=== PATIENT | male | born 1955 | race Caucasian/White ===

== ENCOUNTER 2018-11-28 07:22 | Inpatient (IN) | payer BC ==
[~2018-11-28 07:22] MED LIST: Famotidine 20 MG/2 ML SDV IVPUSH SCH; Ropivacaine 49.25 ML, Ketorolac 30 MG, EPINEPHrine 0.5 MG, cloNIDine 80 MCG in Sodium C... INJECT SCH; Scopolamine 1.5 MG Transdermal Patch TRDERM SCH; Tranexamic Acid 2,000 MG in Sodium Chloride 0.9% 100 ML IV ONE
[2018-11-28] MEDS: Acetaminophen 1,000 MG in Premix Bag 1 BAG IV SCH ×4 (08:03→21:04)
[2018-11-28] MEDS ORDERED: Propofol 200 MG/20 ML SDV ONE ×2 (08:22→10:47)
[2018-11-28] MEDS ORDERED: fentaNYL 100 MCG/2 ML SDV ONE (08:22)
[2018-11-28] MEDS ORDERED: Midazolam 1 MG/ML 2 ML SDV ONE (08:23)
[2018-11-28] MEDS: Lactated Ringers 1,000 ML IV SCH ×2 (08:32→21:04)
--- NOTE | 2018-11-28 08:44 | PCM.PREANE ---
Preanesthetic Assessment - Anesthesia/Transfusion/Family Hx Anesthesia History: Prior Anesthesia Without Reaction Family History of Anesthesia Reaction: No Transfusion History: No Prior Transfusion(s) Intubation History: Unknown - Review of Systems General: No Symptoms Pulmonary: No Symptoms Cardiovascular: No Symptoms Gastrointestinal: No Symptoms Neurological: No Symptoms Other: Reports: None - Physical Assessment Height: 6 ft 1 in Weight: 146.964 kg ASA Class: 3 Mental Status: Alert & Oriented x3 Airway Class: Mallampati = 2 Dentition: Reports: Normal Dentition Thyro-Mental Finger Breadths: 3 Mouth Opening Finger Breadths: 3 ROM/Head Extension: Full Lungs: Clear to Auscultation, Normal Respiratory Effort Cardiovascular: Regular Rate, Regular Rhythm - Allergies Allergies/Adverse Reactions: Allergies Allergy/AdvReac Type Severity Reaction Status Date / Time codeine Allergy Nausea and Verified 11/24/18 07:24 Vomiting - Blood Blood Available: No - Anesthesia Plan Pre-Op Medication Ordered: None - Acknowledgements Anesthesia Type Planned: Spinal (general anesthesia back-up plan) Pt an Appropriate Candidate for the Planned Anesthesia: Yes Alternatives and Risks of Anesthesia Discussed w Pt/Guardian: Yes Pt/Guardian Understands and Agrees with Anesthesia Plan: Yes PreAnesthesia Questionnaire HEENT History: Reports: Retinal Detachment, Other (See Below) Other HEENT History: wears glasses Cardiovascular History: Reports: Blood Clots/VTE/DVT, Hypertension Other Cardiovascular History: hx blood clot to rt leg following femur reconstruction in 2010 Respiratory History: Reports: Sleep Apnea Other Respiratory History: uses CPAP Gastrointestinal History: Reports: GERD Genitourinary History: Reports: None Musculoskeletal History: Reports: Fracture Other Musculoskeletal History: hx fx rt femur Neurological History: Reports: Migraines Other Neuro History: migraines in the past, restless leg syndrome Psychiatric History: Reports: Anxiety, Depression Endocrine/Metabolic History: Reports: Obesity/BMI 30+ (BMI 42.7) Hematologic History: Reports: None Immunologic History: Reports: Other (See Below) Other Immunologic History: surgical request states MRSA positive, patient denies MRSA hx Oncologic (Cancer) History: Reports: None Dermatologic History: Reports: None - Past Surgical History Head Surgeries/Procedures: Reports: None HEENT Surgical History: Reports: Cataract Surgery, Eye Surgery, Tonsillectomy Other HEENT Surgeries/Procedures: surgery for retinal detachment Cardiovascular Surgical History: Reports: None Respiratory Surgical History: Reports: None GI Surgical History: Reports: Colonoscopy Male Surgical History: Reports: None Endocrine Surgical History: Reports: None Neurological Surgical History: Reports: None Musculoskeletal Surgical History: Reports: ORIF, Other (See Below) Other Musculoskeletal Surgeries/Procedures:: excision of ganglion cyst-rt wrist , rt femur reconstruction Dermatological Surgical History: Reports: None - SUBSTANCE USE Smoking Status *Q: Never Smoker Recreational Drug Use History: No - HOME MEDS Home Medications: Home Meds Aspirin [[place] Aspirin EC] 81 mg PO DAILY 08/22/14 [History] Omeprazole [Prilosec] 20 mg PO DAILY 08/22/14 [History] Pramipexole Di-HCl [Pramipexole Dihydrochloride] 1 mg PO BEDTIME 08/22/14 [ History] SUMAtriptan Succinate [Imitrex] 100 mg PO ASDIRECTED PRN 08/22/14 [History] Citalopram Hydrobromide [Celexa] 40 mg PO DAILY 11/24/18 [History] Losartan [Cozaar] 50 mg PO DAILY 11/24/18 [History] amLODIPine [Norvasc] 5 mg PO DAILY 11/24/18 [History] hydroCHLOROthiazide [Hydrochlorothiazide] 25 mg PO DAILY 11/24/18 [History] - CURRENT (IN HOUSE) MEDS Current Meds: Current Medications Famotidine (Pepcid) 40 mg IVPUSH ONARRIVE [facility] Last Admin: 11/28/18 08:04 Dose: 40 mg Acetaminophen 1,000 mg/ Premix 100 mls @ 400 mls/hr IV ONARRIVE [facility] Last Admin: 11/28/18 08:03 Dose: 400 mls/hr Ropivacaine 49.25 ml/Ketorolac Tromethamine 30 mg/Epinephrine HCl 0.5 mg/ Clonidine HCl 80 mcg/ Sodium Chloride 75 mls @ 50 mls/sec INJECT ASDIRECTED [facility] Lactated Ringer's (Ringers, Lactated) 1,000 mls @ 100 mls/hr IV ASDIRECTED KEILY Last Admin: 11/28/18 08:32 Dose: 100 mls/hr Vancomycin HCl 1 gm/ Sodium (Chloride) 250 mls @ 166.512 mls/hr IV ONCALL KE[facility] Scopolamine (Transderm-Scop) 1.5 mg TRDERM ONARRIVE [facility] Last Admin: 11/28/18 08:03 Dose: 1.5 mg Discontinued Medications Fentanyl (Sublimaze) Confirm Administered Dose 100 mcg .ROUTE .STK-MED ONE Stop: 11/28/18 08:23 Tranexamic Acid 2,000 mg/ (Sodium Chloride) 120 mls @ 600 mls/hr IV ASDIRECTED ONE Stop: 11/28/18 06:11 Midazolam HCl (Versed 1 Mg/Ml) Confirm Administered Dose 4 mg .ROUTE .STK-MED ONE Stop: 11/28/18 08:24 Propofol (Diprivan 20 Ml) Confirm Administered Dose 400 mg .ROUTE .STK-MED ONE Stop: 11/28/18 08:23 Tranexamic Acid (Cyklokapron) Confirm Administered Dose 2,000 mg .ROUTE .STK- MED ONE Stop: 11/28/18 08:20
[2018-11-28] MEDS ORDERED: Ondansetron 4 MG/2 ML SDV IVPUSH PRN (11:15)
[2018-11-28] MEDS ORDERED: Aluminum Hydroxide/Magnesium Hydroxide/Simethicone Susp 30 ML Cup PO PRN (11:15)
[2018-11-28] MEDS ORDERED: Bisacodyl 10 MG Supp RECTAL PRN (11:15)
[2018-11-28] MEDS ORDERED: diphenhydrAMINE 25 MG Cap PO PRN (11:15)
[2018-11-28] MEDS: Ketorolac 15 MG/ML SDV IVPUSH SCH ×4 (11:15→22:38)
[2018-11-28] MEDS ORDERED: Morphine PF 30 MG/30 ML PCA Vial IV PRN (11:15)
[2018-11-28] MEDS ORDERED: Sodium Chloride 0.9% 2.5 ML Syringe FLUSH PRN (11:17)
[2018-11-28] MEDS ORDERED: Sodium Chloride 0.9% 10 ML Syringe FLUSH PRN (11:17)
[2018-11-28] MEDS ORDERED: SUMAtriptan 50 MG Tab PO PRN (11:18)
--- NOTE | 2018-11-28 11:40 | PCM.OPNOTE ---
- General Post-Op/Procedure Note Date of Surgery/Procedure: 11/28/18 Operative Procedure(s): L TKA Post-Op Diagnosis: DJD L knee Anesthesia Technique: Moderate Sedation, Spinal Primary Surgeon: Elzbieta Spring Nuclear Equipment Operator: Josephine Felipe Nuclear Equipment Operator: Rubina Aly EBL in mLs: 50 Condition: Good Free Text/Narrative:: tt=56 min #[id number]
--- NOTE | 2018-11-28 13:47 | CR ---
INDICATION: Postop follow up. TECHNIQUE: Two views. IMPRESSION: Nonconstrained left total knee arthroplasty. No fracture or malalignment. Appropriate immediate postoperative appearance. Dictated by Antolin Castro MD @ Nov 28 2018 1:45PM Signed by Dr. Antolin Castro @ Nov 28 2018 1:46PM
[2018-11-28 14:36] LABS: CHLORIDE,CL 108 mmol/L (98-107); SODIUM,NA 142 mmol/L (136-148)
[2018-11-28] MEDS: oxyCODONE 5 MG Tab PO PRN ×2 (15:48→21:11)
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
--- NOTE | 2018-11-28 18:45 | OR ---
SURGEON: Elzbieta Spring MD DATE OF PROCEDURE: 11/28/2018 PREOPERATIVE DIAGNOSIS: Degenerative joint disease, left knee. POSTOPERATIVE DIAGNOSIS: Degenerative joint disease, left knee. PROCEDURE: Left total knee arthroplasty using patient specific instrumentation. ASSISTANTS: Josephine Felipe PA-C and SERGIO Woo. REASON AND ROLE FOR IT ADMINISTRATIVE ASSISTANT: Retraction, prepping, draping, positioning, and closure assistance. ANESTHESIA: Spinal with sedation. ESTIMATED BLOOD LOSS: 50 mL. TOURNIQUET TIME: 56 minutes. COMPLICATIONS: None. DVT PROPHYLAXIS: PAS boot and [place] hose to the nonoperative leg. IMPLANTS USED: Arlene NexGen femoral component size G (LPS), tibial component size 7, 12 mm all-polyethylene articular surface, and 35 mm all-polyethylene patella. FINDINGS: Intraoperative findings showed evidence of tricompartmental degenerative changes with grade 4 chondromalacia in all compartments. Osteophyte formation was also noted. He did have excess wear along the medial aspect of the tibia. No significant synovitis was noted. BRIEF HISTORY: Jonny is a 63-year-old male who has had complaint of progressive left knee pain. X-ray did show degenerative findings. He failed conservative treatment. Due to his lack of response to conservative treatment, I did recommend surgical intervention. The risks and goals of the procedure were discussed with the patient and were documented preoperatively. He agreed to proceed. DESCRIPTION OF PROCEDURE: The patient was properly identified and brought to the operating room. The patient was then transferred from the operating room cart and placed on the operating table in a supine position. Anesthesia was administered by the anesthesia staff. After adequate anesthesia was obtained, a well-padded tourniquet was applied to the surgical lower extremity. Dutton catheter was placed. The lower extremity was then prepped in standard fashion using ChloraPrep solution. It was then sterilely draped. A time-out was performed to ensure correct site and procedure. Preoperative antibiotics were given along with one gram of tranexamic acid IV. The surgical site had been marked preoperatively. An Esmarch was used to exsanguinate the right lower extremity and the tourniquet was inflated. An incision was made over the anterior aspect of the knee. The subcutaneous tissues were dissected down to the level of the fascia. A medial parapatellar approach to the knee was made. A portion of the infrapatellar fat pad was then excised. The distal femur was then exposed. The femoral patient-specific cutting guide was then placed. Pins were also placed. The distal femoral cutting block was placed and the distal femoral cut was made. Instrumentation was then removed. Both Whitesides' line and the epicondylar axis were then marked with electrocautery. The 4-in-1 cutting block was placed. This was placed in a slightly externally rotated position, which corresponded well with the previously drawn lines. The cutting guide was then pinned into position. An Alfredo wing guide was used to check the depth of resection of our anterior condylar cut and it was felt that no notching would occur. The anterior condylar cut was then made followed by the posterior condylar cut. Both the posterior chamfer and anterior chamfer cuts were then made. The cutting block was then removed along with the excess bony remnants. The box cutting guide was then placed. A box cut was then made without difficulty. We then turned our attention to the tibia. The anterior cruciate ligament and posterior cruciate ligament were released and a posterior cruciate ligament retractor was placed to allow the tibia to be pulled anteriorly. The tibial patient-specific guide was then placed on the proximal tibia. This fit anatomically. The pins were then placed. The proximal tibia cutting guide was then placed and screwed into position. The proximal tibial resection was then made with care being taken to protect the patellar tendon. The bony resection was then removed. The remainder of the medial and lateral meniscus were then excised. Care was taken to protect the popliteus tendon. The tibia was then sized to the appropriate size. The distal femur was then elevated. The posterior capsule was stripped off the distal femur both medially and laterally. The posterior capsule along with the medial and lateral gutters were then injected with a standard mixture consisting of clonidine, epinephrine, Toradol, and Ropivacaine, unless any allergies were found preoperatively. The femoral component was then placed onto the distal femur. The tibial component and polyethylene trial were then placed as well. The knee came easily into full extension and was stable to varus and valgus stressing both in full extension and flexion. Any additional releases were performed at this time. We then returned our attention to the patella. The patella was everted and towel clamps were used to hold the patella in position. It was resected to a 15 millimeter thickness. It was then sized to the appropriate size. It was prepared in the usual fashion after placing the predetermined size clamps. This was placed in a slightly superior and medial position. The clamp was then removed. The patellar trial button was placed. The knee was taken through a range of motion using the no-touch technique. The patella tracked centrally. A drop sunny was then placed to check alignment. All instruments were then removed from the knee. The tibial sizer was then placed on the tibia. The tibia was prepared in the usual fashion using the reamer and broach. This was then removed. All bony surfaces were copiously irrigated with Pulsavac solution. They were then suctioned dry. Cement was prepared on the back table in the usual manner. Once it was prepared, the bone ends were again suctioned dry. The tibia was cemented into place first. This was malleted into position. Excess cement was then cleared. The femur was then placed in a similar manner. We placed the polyethylene trial into place and the knee was brought into full extension. An axial load was placed while keeping the knee in full extension. The patella button was also cemented into position and the clamp was used to hold this in place as the cement was allowed to cure. The wound was again copiously irrigated with saline solution using a Pulsavac sound system installer. Following this 1 g of tranexamic acid was applied to the wound topically. After we had adequate curing of the cement, the knee was again taken through a range of motion. The size of the polyethylene was then determined. The polyethylene trial was then removed. The tibial tray was suctioned to make sure there was no remaining soft tissue or cement. Excess cement was cleared from around the edges of the prosthesis as well. The tourniquet was then deflated. We were able to observe for any excess bleeding and none was noted. Electrocautery was used to maintain hemostasis. An additional gram of tranexamic acid was given IV. The retractors were again placed and the predetermined polyethylene was then placed. This was locked into position without difficulty. The knee was again taken through a range of motion with no change from the prior exam. The fascial layer was closed with Number One Vicryl. The subcutaneous tissues were closed with 2-0 Vicryl. The skin was closed with lucas. Xeroform gauze was placed over the wound and a bulky dressing was applied. The patient was then awakened from anesthesia and transferred back to the operating room cart. They were brought to the recovery room in stable condition. All needle and sponge counts were correct. DYAN / [place] /[id number] MTDD
[2018-11-28] MEDS: Docusate Sodium 100 MG Cap PO SCH (21:03)
[2018-11-28] MEDS: Pramipexole 0.25 MG Tab PO SCH (21:03)
[2018-11-29] MEDS: Acetaminophen 1,000 MG in Premix Bag 1 BAG IV SCH (01:55)
[2018-11-29] MEDS: Acetaminophen/oxyCODONE 325-5 MG Tab PO PRN ×4 (05:45→17:06)
[2018-11-29] MEDS: Lactated Ringers 1,000 ML IV SCH (05:48)
[2018-11-29 06:09] LABS: CHLORIDE,CL 105 mmol/L (98-107); SODIUM,NA 139 mmol/L (136-148)
[2018-11-29] MEDS: Morphine 2 MG/ML Syringe IVPUSH PRN ×3 (07:43→20:25)
--- NOTE | 2018-11-29 07:58 | PCM.CONSN ---
- General Info Date of Service: 11/29/18 Admission Dx/Problem (Free Text): Admission Diagnosis/Problem Admission Diagnosis/Problem Knee pain Subjective Update: Dong well this morning, pain is tolerable. No chest pain or SOB. No other concerns. Functional Status: Reports: Pain Controlled, Tolerating Diet, Ambulating - Review of Systems General: Reports: No Symptoms. Denies: Fever, Weakness Pulmonary: Reports: No Symptoms. Denies: Shortness of Breath Cardiovascular: Reports: No Symptoms. Denies: Chest Pain Gastrointestinal: Reports: No Symptoms. Denies: Abdominal Pain, Nausea, Vomiting Genitourinary: Reports: No Symptoms. Denies: Dysuria, Frequency, Burning Musculoskeletal: Reports: Joint Pain (L knee) Skin: Reports: No Symptoms Neurological: Reports: No Symptoms Psychiatric: Reports: No Symptoms - Patient Data Vitals - Most Recent: Last Vital Signs Temp 97.7 F 11/29/18 04:04 Pulse 70 11/29/18 04:04 Resp 16 11/29/18 04:04 BP 118/64 11/29/18 04:04 Pulse Ox 96 11/29/18 04:04 Weight - Most Recent: 146.964 kg I&O - Last 24 Hours: Intake & Output 11/28/18 11/29/18 11/29/18 22:59 06:59 14:59 Intake Total 538 1649 Output Total 300 450 Balance 238 1199 Lab Results Last 24 Hours: Laboratory Results - last 24 hr 11/28/18 11/28/18 11/28/18 Range/Units 08:05 14:04 14:04 WBC 5.95 (4.0-11.0) K/uL RBC 4.64 (4.50-5.90) M/uL Hgb 13.3 (13.0-17.0) g/dL Hct 39.8 (38.0-50.0) % MCV 85.8 (80.0-98.0) fL MCH 28.7 (27.0-32.0) pg MCHC 33.4 (31.0-37.0) g/dL RDW Std Deviation 43.7 (28.0-62.0) fl RDW Coeff of José Miguel 14 (11.0-15.0) % Plt Count 130 L (150-400) K/uL MPV 11.60 (7.40-12.00) fL Neut % (Auto) 47.6 L (48.0-80.0) % Lymph % (Auto) 40.8 H (16.0-40.0) % [place] % (Auto) 7.6 (0.0-15.0) % Eos % (Auto) 3.7 (0.0-7.0) % Baso % (Auto) 0.3 (0.0-1.5) % Neut # (Auto) 2.8 (1.4-5.7) K/uL Lymph # (Auto) 2.4 (0.6-2.4) K/uL [place] # (Auto) 0.5 (0.0-0.8) K/uL Eos # (Auto) 0.2 (0.0-0.7) K/uL Baso # (Auto) 0.0 (0.0-0.1) K/uL Nucleated RBC % 0.0 /100WBC Nucleated RBCs # 0 K/uL Sodium 142 (136-148) mmol/L Potassium 3.5 (3.5-5.1) mmol/L Chloride 108 H (98-107) mmol/L Carbon Dioxide 27.5 (21.0-32.0) mmol/L BUN 14 (7.0-18.0) mg/dL Creatinine 0.8 (0.8-1.3) mg/dL Est Cr Clr Drug Dosing 109.59 mL/min Estimated GFR (MDRD) > 60.0 ml/min Glucose 108 H (74-106) mg/dL Calcium 8.5 (8.5-10.1) mg/dL Magnesium 2.1 (1.8-2.4) mg/dL Blood Type A POSITIVE Antibody Screen NEGATIVE 11/29/18 11/29/18 Range/Units 05:15 05:15 WBC (4.0-11.0) K/uL RBC (4.50-5.90) M/uL Hgb 12.5 L (13.0-17.0) g/dL Hct 38.1 (38.0-50.0) % MCV (80.0-98.0) fL MCH (27.0-32.0) pg MCHC (31.0-37.0) g/dL RDW Std Deviation (28.0-62.0) fl RDW Coeff of José Miguel (11.0-15.0) % Plt Count (150-400) K/uL MPV (7.40-12.00) fL Neut % (Auto) (48.0-80.0) % Lymph % (Auto) (16.0-40.0) % [place] % (Auto) (0.0-15.0) % Eos % (Auto) (0.0-7.0) % Baso % (Auto) (0.0-1.5) % Neut # (Auto) (1.4-5.7) K/uL Lymph # (Auto) (0.6-2.4) K/uL [place] # (Auto) (0.0-0.8) K/uL Eos # (Auto) (0.0-0.7) K/uL Baso # (Auto) (0.0-0.1) K/uL Nucleated RBC % /100WBC Nucleated RBCs # K/uL Sodium 139 (136-148) mmol/L Potassium 3.5 (3.5-5.1) mmol/L Chloride 105 (98-107) mmol/L Carbon Dioxide 28.7 (21.0-32.0) mmol/L BUN 15 (7.0-18.0) mg/dL Creatinine 0.9 (0.8-1.3) mg/dL Est Cr Clr Drug Dosing 97.41 mL/min Estimated GFR (MDRD) > 60.0 ml/min Glucose 146 H (74-106) mg/dL Calcium 8.4 L (8.5-10.1) mg/dL Magnesium (1.8-2.4) mg/dL Blood Type Antibody Screen Med Orders - Current: Current Medications Al Hydroxide/Mg Hydroxide (Mag-Al Plus) 30 ml PO Q4H PRN PRN Reason: Indigestion Amlodipine Besylate (Norvasc) 5 mg PO DAILY KEILY Apixaban (Eliquis) 2.5 mg PO BID KEILY Bisacodyl (Dulcolax) 10 mg RECTAL DAILY PRN PRN Reason: Constipation Celecoxib (Celebrex) 200 mg PO BID KEILY Citalopram Hydrobromide (Celexa) 40 mg PO DAILY KEILY Diphenhydramine HCl (Benadryl) 25 - 50 mg PO Q6H PRN PRN Reason: Itching Docusate Sodium (Colace) 100 mg PO BID [facility] Last Admin: 11/28/18 21:03 Dose: 100 mg Famotidine (Pepcid) 40 mg IVPUSH ONARRIVE [facility] Last Admin: 11/28/18 08:04 Dose: 40 mg Famotidine (Pepcid) 40 mg PO DAILY [facility] Hydrochlorothiazide (Hydrochlorothiazide) 25 mg PO DAILY [facility] Acetaminophen 1,000 mg/ Premix 100 mls @ 400 mls/hr IV ONARRIVE [facility] Last Admin: 11/28/18 21:04 Dose: 400 mls/hr Ropivacaine 49.25 ml/Ketorolac Tromethamine 30 mg/Epinephrine HCl 0.5 mg/ Clonidine HCl 80 mcg/ Sodium Chloride 75 mls @ 50 mls/sec INJECT ASDIRECTED [facility] Lactated Ringer's (Ringers, Lactated) 1,000 mls @ 100 mls/hr IV ASDIRECTED [facility] Last Admin: 11/29/18 05:48 Dose: 100 mls/hr Vancomycin HCl 1 gm/ Sodium (Chloride) 250 mls @ 166.512 mls/hr IV ONCALL [facility] Last Admin: 11/28/18 09:04 Dose: 166.512 mls/hr Losartan Potassium (Cozaar) 50 mg PO DAILY [facility] Morphine Sulfate (Morphine) 1 - 3 mg IVPUSH Q3H PRN PRN Reason: Pain Last Admin: 11/29/18 07:43 Dose: 2 mg Omeprazole (Omeprazole) 20 mg PO DAILY [facility] Ondansetron HCl (Zofran) 4 mg IVPUSH Q6H PRN PRN Reason: Nausea/Vomiting Last Admin: 11/28/18 22:38 Dose: 4 mg Oxycodone/Acetaminophen (Percocet 325-5 Mg) 1 - 2 tab PO Q4H PRN PRN Reason: Pain Last Admin: 11/29/18 05:45 Dose: 2 tab Polyethylene Glycol (Miralax) 17 gm PO DAILY [facility] Pramipexole Dihydrochloride (Mirapex) 1 mg PO BEDTIME [facility] Last Admin: 11/28/18 21:03 Dose: 1 mg Scopolamine (Transderm-Scop) 1.5 mg TRDERM ONARRIVE [facility] Last Admin: 11/28/18 08:03 Dose: 1.5 mg Sodium Chloride (Saline Flush) 10 ml FLUSH ASDIRECTED PRN PRN Reason: Keep Vein Open Sodium Chloride (Saline Flush) 2.5 ml FLUSH ASDIRECTED PRN PRN Reason: Keep Vein Open Sumatriptan Succinate (Imitrex) 100 mg PO ASDIRECTED PRN PRN Reason: Headache Discontinued Medications Aspirin (Aspirin) 325 mg PO BID [facility] Fentanyl (Sublimaze) Confirm Administered Dose 100 mcg .ROUTE .STK-MED ONE Stop: 11/28/18 08:23 Tranexamic Acid 2,000 mg/ (Sodium Chloride) 120 mls @ 600 mls/hr IV ASDIRECTED ONE Stop: 11/28/18 06:11 Last Admin: 11/28/18 14:36 Dose: Not Given Acetaminophen 1,000 mg/ Premix 100 mls @ 400 mls/hr IV Q6H [facility] Stop: 11/29/18 02:14 Last Admin: 11/29/18 01:55 Dose: 400 mls/hr Ketorolac Tromethamine (Toradol) 15 mg IVPUSH Q6H [facility] Stop: 11/29/18 05:00 Last Admin: 11/28/18 22:38 Dose: 15 mg Midazolam HCl (Versed 1 Mg/Ml) Confirm Administered Dose 4 mg .ROUTE .STK-MED ONE Stop: 11/28/18 08:24 Morphine Sulfate (Morphine [employer] 30 Mg In 30 Ml) 30 mg IV ASDIRECTED PRN; Protocol PRN Reason: Pain Stop: 11/29/18 06:00 Oxycodone HCl (Oxycodone) 5 - 10 mg PO Q4H PRN PRN Reason: Pain Stop: 11/29/18 06:00 Last Admin: 11/28/18 21:11 Dose: 10 mg Propofol (Diprivan 20 Ml) Confirm Administered Dose 400 mg .ROUTE .STK-MED ONE Stop: 11/28/18 08:23 Propofol (Diprivan 20 Ml) Confirm Administered Dose 200 mg .ROUTE .STK-MED ONE Stop: 11/28/18 10:48 Tranexamic Acid (Cyklokapron) Confirm Administered Dose 2,000 mg .ROUTE .STK- MED ONE Stop: 11/28/18 08:20 - Exam General: Alert, Oriented, Cooperative Lungs: Clear to Auscultation, Normal Respiratory Effort Cardiovascular: Regular Rate, Regular Rhythm GI/Abdominal Exam: Normal Bowel Sounds, Soft, Non-Tender, No Organomegaly Back Exam: Normal Inspection, Full Range of Motion Extremities: Normal Inspection, Normal Range of Motion, Non-Tender, No Pedal Edema Wound/Incisions: Healing Well Neurological: No New Focal Deficit Psy/Mental Status: Alert, Normal Affect, Normal Mood Consult PN Assessment/Plan Procedures: Procedures DIAGNOSTIC COLONOSCOPY (08/27/14) EMERGENCY DEPT VISIT (11/18/14) FNA W/IMAGE (04/09/16) MRI JNT OF LWR EXTRE W/O DYE (10/20/18) RPR S/N/AX/GEN/TRNK2.6-7.5CM (11/18/14) VITAMIN B-12 (06/24/17) VITAMIN D 25 HYDROXY (06/24/17) X-RAY EXAM KNEE 4 OR MORE (10/17/15) (1) S/P total knee arthroplasty SNOMED Code(s): 8958329037762, 322954091, 9271363516067 Code(s): Z96.659 - PRESENCE OF UNSPECIFIED ARTIFICIAL KNEE JOINT Current Visit: Yes Qualifiers: Laterality: left Qualified Code(s): Z96.652 - Presence of left artificial knee joint (2) HTN (hypertension) SNOMED Code(s): 36413372 Code(s): I10 - ESSENTIAL (PRIMARY) HYPERTENSION Current Visit: Yes Qualifiers: Hypertension type: essential hypertension Qualified Code(s): I10 - Essential (primary) hypertension (3) KASIA (obstructive sleep apnea) SNOMED Code(s): 53439074 Code(s): G47.33 - OBSTRUCTIVE SLEEP APNEA (ADULT) (PEDIATRIC) Current Visit : Yes (4) Hx of deep venous thrombosis SNOMED Code(s): 725740496 Code(s): Z86.718 - PERSONAL HISTORY OF OTHER VENOUS THROMBOSIS AND EMBOLISM Current Visit: Yes Problem List Initiated/Reviewed/Updated: Yes My Orders Last 24 Hours: My Active Orders 11/29/18 09:00 Apixaban [Eliquis] 2.5 mg PO BID Plan: This 63 year old male admitted for L TKA today, hospitalist consult for medical management 1. S/P L TKA: Orders per Dr Spring 2. HTN: Stable, monitor post operatively continue Norvasc, HCTZ, and Losartan 3. KASIA: Stable continue CPAP use at night VTE prophylaxis: encourage adequate coverage due to VTE history. Eliquis 2.5 mg BID ordered
[2018-11-29] MEDS: Docusate Sodium 100 MG Cap PO SCH ×2 (08:43→20:24)
[2018-11-29] MEDS: Celecoxib 100 MG Cap PO SCH ×2 (08:43→20:24)
[2018-11-29] MEDS: Omeprazole 20 MG Cap.CR PO SCH (08:43)
[2018-11-29] MEDS: Hydrochlorothiazide 25 MG Tab PO SCH (08:44)
[2018-11-29] MEDS: amLODIPine 5 MG Tab PO SCH (08:44)
[2018-11-29] MEDS: Famotidine 20 MG Tab PO SCH (08:44)
[2018-11-29] MEDS: Losartan 50 MG Tab PO SCH (08:44)
[2018-11-29] MEDS: Polyethylene Glycol 3350 Powder 17 GM Packet PO SCH (08:44)
[2018-11-29] MEDS: Citalopram 20 MG Tab PO SCH (08:44)
[2018-11-29] MEDS: Apixaban 2.5 MG Tab PO SCH ×2 (08:44→20:24)
[2018-11-29] MEDS ORDERED: Aspirin 325 MG Tab PO SCH (09:00)
--- NOTE | 2018-11-29 09:07 | PCM.SURGPN ---
<Josephine Felipe R - Last Filed: 11/29/18 09:07> - General Info Date of Service: 11/29/18 Date of Surgery/Procedure: 11/28/18 POD#: 1 Functional Status: Reports: Pain Controlled, Tolerating Diet, Ambulating - Review of Systems General: Reports: No Symptoms Pulmonary: Reports: No Symptoms Cardiovascular: Reports: No Symptoms Gastrointestinal: Reports: No Symptoms Musculoskeletal: Reports: Leg Pain Systems Review Comment:: pt up to chair for breakfast tolerating PO intake well no nausea/vomiting pain controlled with PO/IV pain medications ambulating well with FWW no specific concerns today - Patient Data Vitals - Most Recent: Last Vital Signs Temp 97.7 F 11/29/18 04:04 Pulse 70 11/29/18 04:04 Resp 16 11/29/18 04:04 BP 121/76 11/29/18 08:44 Pulse Ox 96 11/29/18 04:04 Weight - Most Recent: 146.964 kg I&O - Last 24 Hours: Intake & Output 11/28/18 11/29/18 11/29/18 22:59 06:59 14:59 Intake Total 538 1649 Output Total 300 450 Balance 238 1199 Lab Results Last 24 Hrs: Laboratory Results - last 24 hr 11/28/18 11/28/18 11/29/18 Range/Units 14:04 14:04 05:15 WBC 5.95 (4.0-11.0) K/uL RBC 4.64 (4.50-5.90) M/uL Hgb 13.3 12.5 L (13.0-17.0) g/dL Hct 39.8 38.1 (38.0-50.0) % MCV 85.8 (80.0-98.0) fL MCH 28.7 (27.0-32.0) pg MCHC 33.4 (31.0-37.0) g/dL RDW Std Deviation 43.7 (28.0-62.0) fl RDW Coeff of José Miguel 14 (11.0-15.0) % Plt Count 130 L (150-400) K/uL MPV 11.60 (7.40-12.00) fL Neut % (Auto) 47.6 L (48.0-80.0) % Lymph % (Auto) 40.8 H (16.0-40.0) % [place] % (Auto) 7.6 (0.0-15.0) % Eos % (Auto) 3.7 (0.0-7.0) % Baso % (Auto) 0.3 (0.0-1.5) % Neut # (Auto) 2.8 (1.4-5.7) K/uL Lymph # (Auto) 2.4 (0.6-2.4) K/uL [place] # (Auto) 0.5 (0.0-0.8) K/uL Eos # (Auto) 0.2 (0.0-0.7) K/uL Baso # (Auto) 0.0 (0.0-0.1) K/uL Nucleated RBC % 0.0 /100WBC Nucleated RBCs # 0 K/uL Sodium 142 (136-148) mmol/L Potassium 3.5 (3.5-5.1) mmol/L Chloride 108 H (98-107) mmol/L Carbon Dioxide 27.5 (21.0-32.0) mmol/L BUN 14 (7.0-18.0) mg/dL Creatinine 0.8 (0.8-1.3) mg/dL Est Cr Clr Drug Dosing 109.59 mL/min Estimated GFR (MDRD) > 60.0 ml/min Glucose 108 H (74-106) mg/dL Calcium 8.5 (8.5-10.1) mg/dL Magnesium 2.1 (1.8-2.4) mg/dL 11/29/18 Range/Units 05:15 WBC (4.0-11.0) K/uL RBC (4.50-5.90) M/uL Hgb (13.0-17.0) g/dL Hct (38.0-50.0) % MCV (80.0-98.0) fL MCH (27.0-32.0) pg MCHC (31.0-37.0) g/dL RDW Std Deviation (28.0-62.0) fl RDW Coeff of José Miguel (11.0-15.0) % Plt Count (150-400) K/uL MPV (7.40-12.00) fL Neut % (Auto) (48.0-80.0) % Lymph % (Auto) (16.0-40.0) % [place] % (Auto) (0.0-15.0) % Eos % (Auto) (0.0-7.0) % Baso % (Auto) (0.0-1.5) % Neut # (Auto) (1.4-5.7) K/uL Lymph # (Auto) (0.6-2.4) K/uL [place] # (Auto) (0.0-0.8) K/uL Eos # (Auto) (0.0-0.7) K/uL Baso # (Auto) (0.0-0.1) K/uL Nucleated RBC % /100WBC Nucleated RBCs # K/uL Sodium 139 (136-148) mmol/L Potassium 3.5 (3.5-5.1) mmol/L Chloride 105 (98-107) mmol/L Carbon Dioxide 28.7 (21.0-32.0) mmol/L BUN 15 (7.0-18.0) mg/dL Creatinine 0.9 (0.8-1.3) mg/dL Est Cr Clr Drug Dosing 97.41 mL/min Estimated GFR (MDRD) > 60.0 ml/min Glucose 146 H (74-106) mg/dL Calcium 8.4 L (8.5-10.1) mg/dL Magnesium (1.8-2.4) mg/dL Med Orders - Current: Current Medications Al Hydroxide/Mg Hydroxide (Mag-Al Plus) 30 ml PO Q4H PRN PRN Reason: Indigestion Amlodipine Besylate (Norvasc) 5 mg PO DAILY [facility] Last Admin: 11/29/18 08:44 Dose: 5 mg Apixaban (Eliquis) 2.5 mg PO BID [facility] Last Admin: 11/29/18 08:44 Dose: 2.5 mg Bisacodyl (Dulcolax) 10 mg RECTAL DAILY PRN PRN Reason: Constipation Celecoxib (Celebrex) 200 mg PO BID [facility] Last Admin: 11/29/18 08:43 Dose: 200 mg Citalopram Hydrobromide (Celexa) 40 mg PO DAILY [facility] Last Admin: 11/29/18 08:44 Dose: 40 mg Diphenhydramine HCl (Benadryl) 25 - 50 mg PO Q6H PRN PRN Reason: Itching Docusate Sodium (Colace) 100 mg PO BID [facility] Last Admin: 11/29/18 08:43 Dose: 100 mg Famotidine (Pepcid) 40 mg IVPUSH ONARRIVE [facility] Last Admin: 11/28/18 08:04 Dose: 40 mg Famotidine (Pepcid) 40 mg PO DAILY [facility] Last Admin: 11/29/18 08:44 Dose: 40 mg Hydrochlorothiazide (Hydrochlorothiazide) 25 mg PO DAILY [facility] Last Admin: 11/29/18 08:44 Dose: 25 mg Acetaminophen 1,000 mg/ Premix 100 mls @ 400 mls/hr IV ONARRIVE [facility] Last Admin: 11/28/18 21:04 Dose: 400 mls/hr Ropivacaine 49.25 ml/Ketorolac Tromethamine 30 mg/Epinephrine HCl 0.5 mg/ Clonidine HCl 80 mcg/ Sodium Chloride 75 mls @ 50 mls/sec INJECT ASDIRECTED [facility] Lactated Ringer's (Ringers, Lactated) 1,000 mls @ 100 mls/hr IV ASDIRECTED [facility] Last Admin: 11/29/18 05:48 Dose: 100 mls/hr Vancomycin HCl 1 gm/ Sodium (Chloride) 250 mls @ 166.512 mls/hr IV ONCALL [facility] Last Admin: 11/28/18 09:04 Dose: 166.512 mls/hr Losartan Potassium (Cozaar) 50 mg PO DAILY [facility] Last Admin: 11/29/18 08:44 Dose: 50 mg Morphine Sulfate (Morphine) 1 - 3 mg IVPUSH Q3H PRN PRN Reason: Pain Last Admin: 11/29/18 07:43 Dose: 2 mg Omeprazole (Omeprazole) 20 mg PO DAILY [facility] Last Admin: 11/29/18 08:43 Dose: 20 mg Ondansetron HCl (Zofran) 4 mg IVPUSH Q6H PRN PRN Reason: Nausea/Vomiting Last Admin: 11/28/18 22:38 Dose: 4 mg Oxycodone/Acetaminophen (Percocet 325-5 Mg) 1 - 2 tab PO Q4H PRN PRN Reason: Pain Last Admin: 11/29/18 05:45 Dose: 2 tab Polyethylene Glycol (Miralax) 17 gm PO DAILY [facility] Last Admin: 11/29/18 08:44 Dose: 17 gm Pramipexole Dihydrochloride (Mirapex) 1 mg PO BEDTIME [facility] Last Admin: 11/28/18 21:03 Dose: 1 mg Scopolamine (Transderm-Scop) 1.5 mg TRDERM ONARRIVE [facility] Last Admin: 11/28/18 08:03 Dose: 1.5 mg Sodium Chloride (Saline Flush) 10 ml FLUSH ASDIRECTED PRN PRN Reason: Keep Vein Open Sodium Chloride (Saline Flush) 2.5 ml FLUSH ASDIRECTED PRN PRN Reason: Keep Vein Open Sumatriptan Succinate (Imitrex) 100 mg PO ASDIRECTED PRN PRN Reason: Headache Discontinued Medications Aspirin (Aspirin) 325 mg PO BID [facility] Fentanyl (Sublimaze) Confirm Administered Dose 100 mcg .ROUTE .STK-MED ONE Stop: 11/28/18 08:23 Tranexamic Acid 2,000 mg/ (Sodium Chloride) 120 mls @ 600 mls/hr IV ASDIRECTED ONE Stop: 11/28/18 06:11 Last Admin: 11/28/18 14:36 Dose: Not Given Acetaminophen 1,000 mg/ Premix 100 mls @ 400 mls/hr IV Q6H [facility] Stop: 11/29/18 02:14 Last Admin: 11/29/18 01:55 Dose: 400 mls/hr Ketorolac Tromethamine (Toradol) 15 mg IVPUSH Q6H [facility] Stop: 11/29/18 05:00 Last Admin: 11/28/18 22:38 Dose: 15 mg Midazolam HCl (Versed 1 Mg/Ml) Confirm Administered Dose 4 mg .ROUTE .STK-MED ONE Stop: 11/28/18 08:24 Morphine Sulfate (Morphine Edger Automatic 30 Mg In 30 Ml) 30 mg IV ASDIRECTED PRN; Protocol PRN Reason: Pain Stop: 11/29/18 06:00 Oxycodone HCl (Oxycodone) 5 - 10 mg PO Q4H PRN PRN Reason: Pain Stop: 11/29/18 06:00 Last Admin: 11/28/18 21:11 Dose: 10 mg Propofol (Diprivan 20 Ml) Confirm Administered Dose 400 mg .ROUTE .STK-MED ONE Stop: 11/28/18 08:23 Propofol (Diprivan 20 Ml) Confirm Administered Dose 200 mg .ROUTE .STK-MED ONE Stop: 11/28/18 10:48 Tranexamic Acid (Cyklokapron) Confirm Administered Dose 2,000 mg .ROUTE .STK- MED ONE Stop: 11/28/18 08:20 - Exam Wound/Incisions: Dressing Dry and Intact. No: Drainage, Erythema General: Alert, Oriented Cardiovascular: Regular Rate, Regular Rhythm Extremities: Other (exam LLE - dressing c/d/i, at/ehl/gastroc 5/5, dp 2+, sensation intact distally) Physical Findings Comment:: vss, afeb o2 96% on room air this morning uo 1275mL hgb 12.5 - Problem List Review Problem List Initiated/Reviewed/Updated: Yes - My Orders Last 24 Hours: Active Orders 24 hr Category Date Time Status CPAP Adult [RT BiPAP/CPAP] [RC] ASDIRECTED Care 11/28/18 13:33 Active Communication Order [RC] PRN Care 11/28/18 11:15 Active Communication Order [RC] PRN Care 11/28/18 11:17 Active Neurovascular Check [RC] Q2HR Care 11/28/18 11:15 Active Notify Provider Consults [RC] ASDIRECTED Care 11/28/18 11:32 Active Notify Provider Vital Signs [RC] ASDIRECTED Care 11/28/18 11:15 Active Overnight Pulse Oximetry [RC] Click to Edit Care 11/28/18 11:54 Active RT Incentive Spirometry [RC] Q1HWA Care 11/28/18 11:15 Active Urinary Catheter Removal [RC] ASDIRECTED Care 11/29/18 06:00 Active Vital Signs [RC] PER UNIT ROUTINE Care 11/28/18 11:15 Active Wound Care [RC] DAILY Care 11/28/18 11:15 Active Consult to Physician [CONS] Routine Cons 11/28/18 11:31 Active PT Evaluation and Treatment [CONS] Routine Cons 11/28/18 11:15 Active HEMOGLOBIN/HEMATOCRIT,HH [HEME] DAILY Lab 11/30/18 06:00 Ordered Acetaminophen/oxyCODONE [Percocet 325-5 MG] Med 11/29/18 06:00 Active 1 - 2 tab PO Q4H PRN Alum Hydrox/Mag Hydrox/Simeth [Mag-Al Plus] Med 11/28/18 11:15 Active 30 ml PO Q4H PRN Apixaban [Eliquis] Med 11/29/18 09:00 Active 2.5 mg PO BID Bisacodyl [Dulcolax] Med 11/28/18 11:15 Active 10 mg RECTAL DAILY PRN Celecoxib [CeleBREX] Med 11/29/18 09:00 Active 200 mg PO BID Citalopram [Celexa] Med 11/29/18 09:00 Active 40 mg PO DAILY Docusate Sodium [Colace] Med 11/28/18 21:00 Active 100 mg PO BID Famotidine [Pepcid] Med 11/29/18 09:00 Active 40 mg PO DAILY Losartan [Cozaar] Med 11/29/18 09:00 Active 50 mg PO DAILY Morphine Med 11/29/18 06:00 Active 1 - 3 mg IVPUSH Q3H PRN Omeprazole Med 11/29/18 09:00 Active 20 mg PO DAILY Ondansetron [Zofran] Med 11/28/18 11:15 Active 4 mg IVPUSH Q6H PRN Polyethylene Glycol 3350 [MiraLAX] Med 11/29/18 09:00 Active 17 gm PO DAILY Pramipexole [Mirapex] Med 11/28/18 21:00 Active 1 mg PO BEDTIME SUMAtriptan [Imitrex] Med 11/28/18 11:18 Active 100 mg PO ASDIRECTED PRN Sodium Chloride 0.9% [Saline Flush] Med 11/28/18 11:17 Active 10 ml FLUSH ASDIRECTED PRN Sodium Chloride 0.9% [Saline Flush] Med 11/28/18 11:17 Active 2.5 ml FLUSH ASDIRECTED PRN amLODIPine [Norvasc] Med 11/29/18 09:00 Active 5 mg PO DAILY diphenhydrAMINE [Benadryl] Med 11/28/18 11:15 Active 25 - 50 mg PO Q6H PRN hydroCHLOROthiazide Med 11/29/18 09:00 Active 25 mg PO DAILY Convert IV to Saline Lock [OM.PC] PRN Oth 11/29/18 06:00 Ordered Ice Therapy [OM.PC] Routine Oth 11/28/18 11:15 Ordered Pulse Oximetry Continuous Monitoring [OM.PC] Routine Oth 11/28/18 11:53 Ordered Medication Orders Al Hydroxide/Mg Hydroxide (Mag-Al Plus) 30 ml PO Q4H PRN PRN Reason: Indigestion Amlodipine Besylate (Norvasc) 5 mg PO DAILY [facility] Last Admin: 11/29/18 08:44 Dose: 5 mg Apixaban (Eliquis) 2.5 mg PO BID [facility] Last Admin: 11/29/18 08:44 Dose: 2.5 mg Bisacodyl (Dulcolax) 10 mg RECTAL DAILY PRN PRN Reason: Constipation Celecoxib (Celebrex) 200 mg PO BID [facility] Last Admin: 11/29/18 08:43 Dose: 200 mg Citalopram Hydrobromide (Celexa) 40 mg PO DAILY [facility] Last Admin: 11/29/18 08:44 Dose: 40 mg Diphenhydramine HCl (Benadryl) 25 - 50 mg PO Q6H PRN PRN Reason: Itching Docusate Sodium (Colace) 100 mg PO BID [facility] Last Admin: 11/29/18 08:43 Dose: 100 mg Admin: 11/28/18 21:03 Dose: 100 mg Famotidine (Pepcid) 40 mg IVPUSH ONARRIVE [facility] Last Admin: 11/28/18 08:04 Dose: 40 mg Famotidine (Pepcid) 40 mg PO DAILY [facility] Last Admin: 11/29/18 08:44 Dose: 40 mg Hydrochlorothiazide (Hydrochlorothiazide) 25 mg PO DAILY [facility] Last Admin: 11/29/18 08:44 Dose: 25 mg Acetaminophen 1,000 mg/ Premix 100 mls @ 400 mls/hr IV ONARRIVE [facility] Last Admin: 11/28/18 21:04 Dose: 400 mls/hr Infusion: 11/28/18 08:18 Dose: 400 mls/hr Admin: 11/28/18 08:03 Dose: 400 mls/hr Ropivacaine 49.25 ml/Ketorolac Tromethamine 30 mg/Epinephrine HCl 0.5 mg/ Clonidine HCl 80 mcg/ Sodium Chloride 75 mls @ 50 mls/sec INJECT ASDIRECTED [facility] Lactated Ringer's (Ringers, Lactated) 1,000 mls @ 100 mls/hr IV ASDIRECTED [facility] Last Admin: 11/29/18 05:48 Dose: 100 mls/hr Infusion: 11/29/18 05:48 Dose: 100 mls/hr Admin: 11/28/18 21:04 Dose: 100 mls/hr Infusion: 11/28/18 18:32 Dose: 100 mls/hr Admin: 11/28/18 08:32 Dose: 100 mls/hr Vancomycin HCl 1 gm/ Sodium (Chloride) 250 mls @ 166.512 mls/hr IV ONCALL [facility] Last Admin: 11/28/18 09:04 Dose: 166.512 mls/hr Losartan Potassium (Cozaar) 50 mg PO DAILY [facility] Last Admin: 11/29/18 08:44 Dose: 50 mg Morphine Sulfate (Morphine) 1 - 3 mg IVPUSH Q3H PRN PRN Reason: Pain Last Admin: 11/29/18 07:43 Dose: 2 mg Omeprazole (Omeprazole) 20 mg PO DAILY [facility] Last Admin: 11/29/18 08:43 Dose: 20 mg Ondansetron HCl (Zofran) 4 mg IVPUSH Q6H PRN PRN Reason: Nausea/Vomiting Last Admin: 11/28/18 22:38 Dose: 4 mg Oxycodone/Acetaminophen (Percocet 325-5 Mg) 1 - 2 tab PO Q4H PRN PRN Reason: Pain Last Admin: 11/29/18 05:45 Dose: 2 tab Polyethylene Glycol (Miralax) 17 gm PO DAILY [facility] Last Admin: 11/29/18 08:44 Dose: 17 gm Pramipexole Dihydrochloride (Mirapex) 1 mg PO BEDTIME [facility] Last Admin: 11/28/18 21:03 Dose: 1 mg Scopolamine (Transderm-Scop) 1.5 mg TRDERM ONARRIVE [facility] Last Admin: 11/28/18 08:03 Dose: 1.5 mg Sodium Chloride (Saline Flush) 10 ml FLUSH ASDIRECTED PRN PRN Reason: Keep Vein Open Sodium Chloride (Saline Flush) 2.5 ml FLUSH ASDIRECTED PRN PRN Reason: Keep Vein Open Sumatriptan Succinate (Imitrex) 100 mg PO ASDIRECTED PRN PRN Reason: Headache - Assessment Assessment (Free Text/Narrative):: POD#1 L TKA - Plan Plan (Free Text/Narrative):: DC IV fluids - saline lock IV DC ornelas DC [employer] - morphine IV prn breakthrough pain DC oxycodone - percocet 5/325 prn available pt has hx DVT - will do Eliquis 2.5mg PO BID as DVT prophylaxis will change dressing to aquacel prior to d/ch PT today pt has wheeled walker or script has been written anticipate up to 72 hour stay for IV pain medication and continued physical therapy pt will require FWW for safe mobility/stability until increased strength/gait independence s/p TKA - has been safely mobilizing in room with FWW. d/ch medications written <Elzbieta Spring R - Last Filed: 11/29/18 14:12> - Patient Data Vitals - Most Recent: Last Vital Signs Temp 99.2 F 11/29/18 12:00 Pulse 96 11/29/18 12:00 Resp 18 11/29/18 12:00 BP 135/78 11/29/18 12:00 Pulse Ox 90 L 11/29/18 12:00 I&O - Last 24 Hours: Intake & Output 11/28/18 11/29/18 11/29/18 22:59 06:59 14:59 Intake Total 538 1649 Output Total 300 450 Balance 238 1199 Lab Results Last 24 Hrs: Laboratory Results - last 24 hr 11/28/18 11/28/18 11/29/18 Range/Units 14:04 14:04 05:15 WBC 5.95 (4.0-11.0) K/uL RBC 4.64 (4.50-5.90) M/uL Hgb 13.3 12.5 L (13.0-17.0) g/dL Hct 39.8 38.1 (38.0-50.0) % MCV 85.8 (80.0-98.0) fL MCH 28.7 (27.0-32.0) pg MCHC 33.4 (31.0-37.0) g/dL RDW Std Deviation 43.7 (28.0-62.0) fl RDW Coeff of José Miguel 14 (11.0-15.0) % Plt Count 130 L (150-400) K/uL MPV 11.60 (7.40-12.00) fL Neut % (Auto) 47.6 L (48.0-80.0) % Lymph % (Auto) 40.8 H (16.0-40.0) % [place] % (Auto) 7.6 (0.0-15.0) % Eos % (Auto) 3.7 (0.0-7.0) % Baso % (Auto) 0.3 (0.0-1.5) % Neut # (Auto) 2.8 (1.4-5.7) K/uL Lymph # (Auto) 2.4 (0.6-2.4) K/uL [place] # (Auto) 0.5 (0.0-0.8) K/uL Eos # (Auto) 0.2 (0.0-0.7) K/uL Baso # (Auto) 0.0 (0.0-0.1) K/uL Nucleated RBC % 0.0 /100WBC Nucleated RBCs # 0 K/uL Sodium 142 (136-148) mmol/L Potassium 3.5 (3.5-5.1) mmol/L Chloride 108 H (98-107) mmol/L Carbon Dioxide 27.5 (21.0-32.0) mmol/L BUN 14 (7.0-18.0) mg/dL Creatinine 0.8 (0.8-1.3) mg/dL Est Cr Clr Drug Dosing 109.59 mL/min Estimated GFR (MDRD) > 60.0 ml/min Glucose 108 H (74-106) mg/dL Calcium 8.5 (8.5-10.1) mg/dL Magnesium 2.1 (1.8-2.4) mg/dL 11/29/18 Range/Units 05:15 WBC (4.0-11.0) K/uL RBC (4.50-5.90) M/uL Hgb (13.0-17.0) g/dL Hct (38.0-50.0) % MCV (80.0-98.0) fL MCH (27.0-32.0) pg MCHC (31.0-37.0) g/dL RDW Std Deviation (28.0-62.0) fl RDW Coeff of José Miguel (11.0-15.0) % Plt Count (150-400) K/uL MPV (7.40-12.00) fL Neut % (Auto) (48.0-80.0) % Lymph % (Auto) (16.0-40.0) % [place] % (Auto) (0.0-15.0) % Eos % (Auto) (0.0-7.0) % Baso % (Auto) (0.0-1.5) % Neut # (Auto) (1.4-5.7) K/uL Lymph # (Auto) (0.6-2.4) K/uL [place] # (Auto) (0.0-0.8) K/uL Eos # (Auto) (0.0-0.7) K/uL Baso # (Auto) (0.0-0.1) K/uL Nucleated RBC % /100WBC Nucleated RBCs # K/uL Sodium 139 (136-148) mmol/L Potassium 3.5 (3.5-5.1) mmol/L Chloride 105 (98-107) mmol/L Carbon Dioxide 28.7 (21.0-32.0) mmol/L BUN 15 (7.0-18.0) mg/dL Creatinine 0.9 (0.8-1.3) mg/dL Est Cr Clr Drug Dosing 97.41 mL/min Estimated GFR (MDRD) > 60.0 ml/min Glucose 146 H (74-106) mg/dL Calcium 8.4 L (8.5-10.1) mg/dL Magnesium (1.8-2.4) mg/dL Med Orders - Current: Current Medications Al Hydroxide/Mg Hydroxide (Mag-Al Plus) 30 ml PO Q4H PRN PRN Reason: Indigestion Amlodipine Besylate (Norvasc) 5 mg PO DAILY [facility] Last Admin: 11/29/18 08:44 Dose: 5 mg Apixaban (Eliquis) 2.5 mg PO BID [facility] Last Admin: 11/29/18 08:44 Dose: 2.5 mg Bisacodyl (Dulcolax) 10 mg RECTAL DAILY PRN PRN Reason: Constipation Celecoxib (Celebrex) 200 mg PO BID [facility] Last Admin: 11/29/18 08:43 Dose: 200 mg Citalopram Hydrobromide (Celexa) 40 mg PO DAILY [facility] Last Admin: 11/29/18 08:44 Dose: 40 mg Diphenhydramine HCl (Benadryl) 25 - 50 mg PO Q6H PRN PRN Reason: Itching Docusate Sodium (Colace) 100 mg PO BID [facility] Last Admin: 11/29/18 08:43 Dose: 100 mg Famotidine (Pepcid) 40 mg IVPUSH ONARRIVE [facility] Last Admin: 11/28/18 08:04 Dose: 40 mg Famotidine (Pepcid) 40 mg PO DAILY [facility] Last Admin: 11/29/18 08:44 Dose: 40 mg Hydrochlorothiazide (Hydrochlorothiazide) 25 mg PO DAILY [facility] Last Admin: 11/29/18 08:44 Dose: 25 mg Acetaminophen 1,000 mg/ Premix 100 mls @ 400 mls/hr IV ONARRIVE [facility] Last Admin: 11/28/18 21:04 Dose: 400 mls/hr Ropivacaine 49.25 ml/Ketorolac Tromethamine 30 mg/Epinephrine HCl 0.5 mg/ Clonidine HCl 80 mcg/ Sodium Chloride 75 mls @ 50 mls/sec INJECT ASDIRECTED [facility] Lactated Ringer's (Ringers, Lactated) 1,000 mls @ 100 mls/hr IV ASDIRECTED [facility] Last Admin: 11/29/18 05:48 Dose: 100 mls/hr Vancomycin HCl 1 gm/ Sodium (Chloride) 250 mls @ 166.512 mls/hr IV ONCALL [facility] Last Admin: 11/28/18 09:04 Dose: 166.512 mls/hr Losartan Potassium (Cozaar) 50 mg PO DAILY [facility] Last Admin: 11/29/18 08:44 Dose: 50 mg Morphine Sulfate (Morphine) 1 - 3 mg IVPUSH Q3H PRN PRN Reason: Pain Last Admin: 11/29/18 11:41 Dose: 3 mg Omeprazole (Omeprazole) 20 mg PO DAILY [facility] Last Admin: 11/29/18 08:43 Dose: 20 mg Ondansetron HCl (Zofran) 4 mg IVPUSH Q6H PRN PRN Reason: Nausea/Vomiting Last Admin: 11/28/18 22:38 Dose: 4 mg Oxycodone/Acetaminophen (Percocet 325-5 Mg) 1 - 2 tab PO Q4H PRN PRN Reason: Pain Last Admin: 11/29/18 13:33 Dose: 2 tab Polyethylene Glycol (Miralax) 17 gm PO DAILY [facility] Last Admin: 11/29/18 08:44 Dose: 17 gm Pramipexole Dihydrochloride (Mirapex) 1 mg PO BEDTIME [facility] Last Admin: 11/28/18 21:03 Dose: 1 mg Scopolamine (Transderm-Scop) 1.5 mg TRDERM ONARRIVE [facility] Last Admin: 11/28/18 08:03 Dose: 1.5 mg Sodium Chloride (Saline Flush) 10 ml FLUSH ASDIRECTED PRN PRN Reason: Keep Vein Open Sodium Chloride (Saline Flush) 2.5 ml FLUSH ASDIRECTED PRN PRN Reason: Keep Vein Open Sumatriptan Succinate (Imitrex) 100 mg PO ASDIRECTED PRN PRN Reason: Headache Discontinued Medications Aspirin (Aspirin) 325 mg PO BID [facility] Fentanyl (Sublimaze) Confirm Administered Dose 100 mcg .ROUTE .STK-MED ONE Stop: 11/28/18 08:23 Tranexamic Acid 2,000 mg/ (Sodium Chloride) 120 mls @ 600 mls/hr IV ASDIRECTED ONE Stop: 11/28/18 06:11 Last Admin: 11/28/18 14:36 Dose: Not Given Acetaminophen 1,000 mg/ Premix 100 mls @ 400 mls/hr IV Q6H [facility] Stop: 11/29/18 02:14 Last Admin: 11/29/18 01:55 Dose: 400 mls/hr Ketorolac Tromethamine (Toradol) 15 mg IVPUSH Q6H [facility] Stop: 11/29/18 05:00 Last Admin: 11/28/18 22:38 Dose: 15 mg Midazolam HCl (Versed 1 Mg/Ml) Confirm Administered Dose 4 mg .ROUTE .STK-MED ONE Stop: 11/28/18 08:24 Morphine Sulfate (Morphine Edger Automatic 30 Mg In 30 Ml) 30 mg IV ASDIRECTED PRN; Protocol PRN Reason: Pain Stop: 11/29/18 06:00 Oxycodone HCl (Oxycodone) 5 - 10 mg PO Q4H PRN PRN Reason: Pain Stop: 11/29/18 06:00 Last Admin: 11/28/18 21:11 Dose: 10 mg Propofol (Diprivan 20 Ml) Confirm Administered Dose 400 mg .ROUTE .STK-MED ONE Stop: 11/28/18 08:23 Propofol (Diprivan 20 Ml) Confirm Administered Dose 200 mg .ROUTE .STK-MED ONE Stop: 11/28/18 10:48 Tranexamic Acid (Cyklokapron) Confirm Administered Dose 2,000 mg .ROUTE .STK- MED ONE Stop: 11/28/18 08:20 - My Orders Last 24 Hours: Active Orders 24 hr Category Date Time Status CPAP Adult [RT BiPAP/CPAP] [RC] ASDIRECTED Care 11/28/18 13:33 Active Urinary Catheter Removal [RC] ASDIRECTED Care 11/29/18 06:00 Active HEMOGLOBIN/HEMATOCRIT,HH [HEME] DAILY Lab 11/30/18 06:00 Ordered Acetaminophen/oxyCODONE [Percocet 325-5 MG] Med 11/29/18 06:00 Active 1 - 2 tab PO Q4H PRN Apixaban [Eliquis] Med 11/29/18 09:00 Active 2.5 mg PO BID Celecoxib [CeleBREX] Med 11/29/18 09:00 Active 200 mg PO BID Citalopram [Celexa] Med 11/29/18 09:00 Active 40 mg PO DAILY Docusate Sodium [Colace] Med 11/28/18 21:00 Active 100 mg PO BID Famotidine [Pepcid] Med 11/29/18 09:00 Active 40 mg PO DAILY Losartan [Cozaar] Med 11/29/18 09:00 Active 50 mg PO DAILY Morphine Med 11/29/18 06:00 Active 1 - 3 mg IVPUSH Q3H PRN Omeprazole Med 11/29/18 09:00 Active 20 mg PO DAILY Polyethylene Glycol 3350 [MiraLAX] Med 11/29/18 09:00 Active 17 gm PO DAILY Pramipexole [Mirapex] Med 11/28/18 21:00 Active 1 mg PO BEDTIME amLODIPine [Norvasc] Med 11/29/18 09:00 Active 5 mg PO DAILY hydroCHLOROthiazide Med 11/29/18 09:00 Active 25 mg PO DAILY Convert IV to Saline Lock [OM.PC] PRN Oth 11/29/18 06:00 Ordered Medication Orders Al Hydroxide/Mg Hydroxide (Mag-Al Plus) 30 ml PO Q4H PRN PRN Reason: Indigestion Amlodipine Besylate (Norvasc) 5 mg PO DAILY [facility] Last Admin: 11/29/18 08:44 Dose: 5 mg Apixaban (Eliquis) 2.5 mg PO BID KE[facility] Last Admin: 11/29/18 08:44 Dose: 2.5 mg Bisacodyl (Dulcolax) 10 mg RECTAL DAILY PRN PRN Reason: Constipation Celecoxib (Celebrex) 200 mg PO BID [facility] Last Admin: 11/29/18 08:43 Dose: 200 mg Citalopram Hydrobromide (Celexa) 40 mg PO DAILY [facility] Last Admin: 11/29/18 08:44 Dose: 40 mg Diphenhydramine HCl (Benadryl) 25 - 50 mg PO Q6H PRN PRN Reason: Itching Docusate Sodium (Colace) 100 mg PO BID [facility] Last Admin: 11/29/18 08:43 Dose: 100 mg Admin: 11/28/18 21:03 Dose: 100 mg Famotidine (Pepcid) 40 mg IVPUSH ONARRIVE [facility] Last Admin: 11/28/18 08:04 Dose: 40 mg Famotidine (Pepcid) 40 mg PO DAILY [facility] Last Admin: 11/29/18 08:44 Dose: 40 mg Hydrochlorothiazide (Hydrochlorothiazide) 25 mg PO DAILY [facility] Last Admin: 11/29/18 08:44 Dose: 25 mg Acetaminophen 1,000 mg/ Premix 100 mls @ 400 mls/hr IV ONARRIVE [facility] Last Admin: 11/28/18 21:04 Dose: 400 mls/hr Infusion: 11/28/18 08:18 Dose: 400 mls/hr Admin: 11/28/18 08:03 Dose: 400 mls/hr Ropivacaine 49.25 ml/Ketorolac Tromethamine 30 mg/Epinephrine HCl 0.5 mg/ Clonidine HCl 80 mcg/ Sodium Chloride 75 mls @ 50 mls/sec INJECT ASDIRECTED [facility] Lactated Ringer's (Ringers, Lactated) 1,000 mls @ 100 mls/hr IV ASDIRECTED [facility] Last Admin: 11/29/18 05:48 Dose: 100 mls/hr Infusion: 11/29/18 05:48 Dose: 100 mls/hr Admin: 11/28/18 21:04 Dose: 100 mls/hr Infusion: 11/28/18 18:32 Dose: 100 mls/hr Admin: 11/28/18 08:32 Dose: 100 mls/hr Vancomycin HCl 1 gm/ Sodium (Chloride) 250 mls @ 166.512 mls/hr IV ONCALL [facility] Last Admin: 11/28/18 09:04 Dose: 166.512 mls/hr Losartan Potassium (Cozaar) 50 mg PO DAILY [facility] Last Admin: 11/29/18 08:44 Dose: 50 mg Morphine Sulfate (Morphine) 1 - 3 mg IVPUSH Q3H PRN PRN Reason: Pain Last Admin: 11/29/18 11:41 Dose: 3 mg Admin: 11/29/18 07:43 Dose: 2 mg Omeprazole (Omeprazole) 20 mg PO DAILY [facility] Last Admin: 11/29/18 08:43 Dose: 20 mg Ondansetron HCl (Zofran) 4 mg IVPUSH Q6H PRN PRN Reason: Nausea/Vomiting Last Admin: 11/28/18 22:38 Dose: 4 mg Oxycodone/Acetaminophen (Percocet 325-5 Mg) 1 - 2 tab PO Q4H PRN PRN Reason: Pain Last Admin: 11/29/18 13:33 Dose: 2 tab Admin: 11/29/18 09:39 Dose: 2 tab Admin: 11/29/18 05:45 Dose: 2 tab Polyethylene Glycol (Miralax) 17 gm PO DAILY [facility] Last Admin: 11/29/18 08:44 Dose: 17 gm Pramipexole Dihydrochloride (Mirapex) 1 mg PO BEDTIME [facility] Last Admin: 11/28/18 21:03 Dose: 1 mg Scopolamine (Transderm-Scop) 1.5 mg TRDERM ONARRIVE [facility] Last Admin: 11/28/18 08:03 Dose: 1.5 mg Sodium Chloride (Saline Flush) 10 ml FLUSH ASDIRECTED PRN PRN Reason: Keep Vein Open Sodium Chloride (Saline Flush) 2.5 ml FLUSH ASDIRECTED PRN PRN Reason: Keep Vein Open Sumatriptan Succinate (Imitrex) 100 mg PO ASDIRECTED PRN PRN Reason: Headache - Plan Plan (Free Text/Narrative):: 1300 Patient seen and examined. Agree with the above note. He is currently sitting up in his chair. He was up with physical therapy earlier today. He is moving quite well. His pain has been well-controlled. He has no other concerns today. His hemoglobin is stable. 1. Plan to discharge home later today 2. Continue with outpatient physical therapy 3. Follow-up in 2 weeks for reevaluation. He is advised to contact us if he has questions or concerns before that time. 4. Continue aspirin for DVT prophylaxis
--- NOTE | 2018-11-29 10:33 | PCM48HPAN ---
Post Anesthesia Note - EVALUATION WITHIN 48HRS OF ANESTHETIC Vital Signs in Normal Range: Yes Patient Participated in Evaluation: Yes Respiratory Function Stable: Yes Airway Patent: Yes Cardiovascular Function Stable: Yes Hydration Status Stable: Yes Pain Control Satisfactory: Yes Nausea and Vomiting Control Satisfactory: Yes Mental Status Recovered: Yes Resp Rate: 16 Blood Pressure: 121/76 - COMMENTS/OBSERVATIONS Free Text/Narrative:: no anesthesia problems
[2018-11-29] MEDS: Pramipexole 0.25 MG Tab PO SCH (20:24)
[2018-11-30] MEDS: Acetaminophen/oxyCODONE 325-5 MG Tab PO PRN ×2 (02:54→14:35)
[2018-11-30 06:06] LABS: CHLORIDE,CL 104 mmol/L (98-107); SODIUM,NA 140 mmol/L (136-148)
[2018-11-30] MEDS: Morphine 2 MG/ML Syringe IVPUSH PRN (07:36)
[2018-11-30] MEDS: Docusate Sodium 100 MG Cap PO SCH (09:43)
[2018-11-30] MEDS: Omeprazole 20 MG Cap.CR PO SCH (09:44)
[2018-11-30] MEDS: amLODIPine 5 MG Tab PO SCH (09:44)
[2018-11-30] MEDS: Citalopram 20 MG Tab PO SCH (09:46)
[2018-11-30] MEDS: Losartan 50 MG Tab PO SCH (09:47)
[2018-11-30] MEDS: Famotidine 20 MG Tab PO SCH (09:47)
[2018-11-30] MEDS: Celecoxib 100 MG Cap PO SCH (09:47)
[2018-11-30] MEDS: Polyethylene Glycol 3350 Powder 17 GM Packet PO SCH (09:47)
[2018-11-30] MEDS: Apixaban 2.5 MG Tab PO SCH (09:47)
[2018-11-30] MEDS: Hydrochlorothiazide 25 MG Tab PO SCH (09:47)
--- NOTE | 2018-11-30 11:41 | PCM.CONSN ---
- General Info Date of Service: 11/30/18 Admission Dx/Problem (Free Text): Admission Diagnosis/Problem Admission Diagnosis/Problem Knee pain Subjective Update: Doing well this morning. Eager to go home. No chest pain or SOB. No concerns. Functional Status: Reports: Pain Controlled, Tolerating Diet, Ambulating, Urinating - Review of Systems General: Reports: No Symptoms. Denies: Fever, Weakness, Fatigue HEENT: Reports: No Symptoms. Denies: Headaches, Sore Throat, Visual Changes Pulmonary: Reports: No Symptoms. Denies: Shortness of Breath Cardiovascular: Reports: No Symptoms. Denies: Chest Pain Gastrointestinal: Reports: No Symptoms. Denies: Abdominal Pain, Nausea, Vomiting Genitourinary: Reports: No Symptoms Musculoskeletal: Reports: No Symptoms Skin: Reports: No Symptoms Neurological: Reports: No Symptoms Psychiatric: Reports: No Symptoms - Patient Data Vitals - Most Recent: Last Vital Signs Temp 97.8 F 11/30/18 08:00 Pulse 83 11/30/18 08:00 Resp 16 11/30/18 08:00 BP 136/76 11/30/18 09:47 Pulse Ox 91 L 11/30/18 08:00 Weight - Most Recent: 146.964 kg I&O - Last 24 Hours: Intake & Output 11/29/18 11/30/18 11/30/18 22:59 06:59 14:59 Intake Total 2140 1040 Output Total 1250 2725 Balance 890 -1685 Lab Results Last 24 Hours: Laboratory Results - last 24 hr 11/30/18 11/30/18 Range/Units 04:40 04:40 Hgb 12.1 L (13.0-17.0) g/dL Hct 36.7 L (38.0-50.0) % Sodium 140 (136-148) mmol/L Potassium 3.4 L (3.5-5.1) mmol/L Chloride 104 (98-107) mmol/L Carbon Dioxide 30.9 (21.0-32.0) mmol/L BUN 12 (7.0-18.0) mg/dL Creatinine 0.9 (0.8-1.3) mg/dL Est Cr Clr Drug Dosing 97.41 mL/min Estimated GFR (MDRD) > 60.0 ml/min Glucose 152 H (74-106) mg/dL Calcium 8.7 (8.5-10.1) mg/dL Med Orders - Current: Current Medications Al Hydroxide/Mg Hydroxide (Mag-Al Plus) 30 ml PO Q4H PRN PRN Reason: Indigestion Amlodipine Besylate (Norvasc) 5 mg PO DAILY [facility] Last Admin: 11/30/18 09:44 Dose: 5 mg Apixaban (Eliquis) 2.5 mg PO BID [facility] Last Admin: 11/30/18 09:47 Dose: 2.5 mg Bisacodyl (Dulcolax) 10 mg RECTAL DAILY PRN PRN Reason: Constipation Celecoxib (Celebrex) 200 mg PO BID [facility] Last Admin: 11/30/18 09:47 Dose: 200 mg Citalopram Hydrobromide (Celexa) 40 mg PO DAILY [facility] Last Admin: 11/30/18 09:46 Dose: 40 mg Diphenhydramine HCl (Benadryl) 25 - 50 mg PO Q6H PRN PRN Reason: Itching Docusate Sodium (Colace) 100 mg PO BID [facility] Last Admin: 11/30/18 09:43 Dose: 100 mg Famotidine (Pepcid) 40 mg IVPUSH ONARRIVE [facility] Last Admin: 11/28/18 08:04 Dose: 40 mg Famotidine (Pepcid) 40 mg PO DAILY [facility] Last Admin: 11/30/18 09:47 Dose: 40 mg Hydrochlorothiazide (Hydrochlorothiazide) 25 mg PO DAILY [facility] Last Admin: 11/30/18 09:47 Dose: 25 mg Ropivacaine 49.25 ml/Ketorolac Tromethamine 30 mg/Epinephrine HCl 0.5 mg/ Clonidine HCl 80 mcg/ Sodium Chloride 75 mls @ 50 mls/sec INJECT ASDIRECTED [facility] Lactated Ringer's (Ringers, Lactated) 1,000 mls @ 100 mls/hr IV ASDIRECTED [facility] Last Admin: 11/29/18 05:48 Dose: 100 mls/hr Vancomycin HCl 1 gm/ Sodium (Chloride) 250 mls @ 166.512 mls/hr IV ONCALL [facility] Last Admin: 11/28/18 09:04 Dose: 166.512 mls/hr Losartan Potassium (Cozaar) 50 mg PO DAILY [facility] Last Admin: 11/30/18 09:47 Dose: 50 mg Morphine Sulfate (Morphine) 1 - 3 mg IVPUSH Q3H PRN PRN Reason: Pain Last Admin: 11/30/18 07:36 Dose: 2 mg Omeprazole (Omeprazole) 20 mg PO DAILY [facility] Last Admin: 11/30/18 09:44 Dose: 20 mg Ondansetron HCl (Zofran) 4 mg IVPUSH Q6H PRN PRN Reason: Nausea/Vomiting Last Admin: 11/28/18 22:38 Dose: 4 mg Oxycodone/Acetaminophen (Percocet 325-5 Mg) 1 - 2 tab PO Q4H PRN PRN Reason: Pain Last Admin: 11/30/18 02:54 Dose: 2 tab Polyethylene Glycol (Miralax) 17 gm PO DAILY [facility] Last Admin: 11/30/18 09:47 Dose: 17 gm Pramipexole Dihydrochloride (Mirapex) 1 mg PO BEDTIME [facility] Last Admin: 11/29/18 20:24 Dose: 1 mg Scopolamine (Transderm-Scop) 1.5 mg TRDERM ONARRIVE [facility] Last Admin: 11/28/18 08:03 Dose: 1.5 mg Sodium Chloride (Saline Flush) 10 ml FLUSH ASDIRECTED PRN PRN Reason: Keep Vein Open Sodium Chloride (Saline Flush) 2.5 ml FLUSH ASDIRECTED PRN PRN Reason: Keep Vein Open Sumatriptan Succinate (Imitrex) 100 mg PO ASDIRECTED PRN PRN Reason: Headache Discontinued Medications Aspirin (Aspirin) 325 mg PO BID [facility] Fentanyl (Sublimaze) Confirm Administered Dose 100 mcg .ROUTE .STK-MED ONE Stop: 11/28/18 08:23 Acetaminophen 1,000 mg/ Premix 100 mls @ 400 mls/hr IV ONARRIVE [facility] Last Admin: 11/28/18 21:04 Dose: 400 mls/hr Tranexamic Acid 2,000 mg/ (Sodium Chloride) 120 mls @ 600 mls/hr IV ASDIRECTED ONE Stop: 11/28/18 06:11 Last Admin: 11/28/18 14:36 Dose: Not Given Acetaminophen 1,000 mg/ Premix 100 mls @ 400 mls/hr IV Q6H [facility] Stop: 11/29/18 02:14 Last Admin: 11/29/18 01:55 Dose: 400 mls/hr Ketorolac Tromethamine (Toradol) 15 mg IVPUSH Q6H [facility] Stop: 11/29/18 05:00 Last Admin: 11/28/18 22:38 Dose: 15 mg Midazolam HCl (Versed 1 Mg/Ml) Confirm Administered Dose 4 mg .ROUTE .STK-MED ONE Stop: 11/28/18 08:24 Morphine Sulfate (Morphine Pulp Refiner Operator 30 Mg In 30 Ml) 30 mg IV ASDIRECTED PRN; Protocol PRN Reason: Pain Stop: 11/29/18 06:00 Oxycodone HCl (Oxycodone) 5 - 10 mg PO Q4H PRN PRN Reason: Pain Stop: 11/29/18 06:00 Last Admin: 11/28/18 21:11 Dose: 10 mg Propofol (Diprivan 20 Ml) Confirm Administered Dose 400 mg .ROUTE .STK-MED ONE Stop: 11/28/18 08:23 Propofol (Diprivan 20 Ml) Confirm Administered Dose 200 mg .ROUTE .STK-MED ONE Stop: 11/28/18 10:48 Tranexamic Acid (Cyklokapron) Confirm Administered Dose 2,000 mg .ROUTE .STK- MED ONE Stop: 11/28/18 08:20 - Exam General: Alert, Oriented, Cooperative, No Acute Distress Lungs: Clear to Auscultation, Normal Respiratory Effort Cardiovascular: Regular Rate, Regular Rhythm GI/Abdominal Exam: Normal Bowel Sounds, Soft, Non-Tender, No Organomegaly Extremities: Normal Inspection, Normal Range of Motion, Non-Tender, No Pedal Edema Wound/Incisions: Dressing Dry and Intact Neurological: No New Focal Deficit Psy/Mental Status: Alert, Normal Affect, Normal Mood Consult PN Assessment/Plan Procedures: Procedures DIAGNOSTIC COLONOSCOPY (08/27/14) EMERGENCY DEPT VISIT (11/18/14) FNA W/IMAGE (04/09/16) MRI JNT OF LWR EXTRE W/O DYE (10/20/18) RPR S/N/AX/GEN/TRNK2.6-7.5CM (11/18/14) VITAMIN B-12 (06/24/17) VITAMIN D 25 HYDROXY (06/24/17) X-RAY EXAM KNEE 4 OR MORE (10/17/15) (1) S/P total knee arthroplasty SNOMED Code(s): 0583966557295, 780569569, 6479602467623 Code(s): Z96.659 - PRESENCE OF UNSPECIFIED ARTIFICIAL KNEE JOINT Current Visit: Yes Qualifiers: Laterality: left Qualified Code(s): Z96.652 - Presence of left artificial knee joint (2) HTN (hypertension) SNOMED Code(s): 58184680 Code(s): I10 - ESSENTIAL (PRIMARY) HYPERTENSION Current Visit: Yes Qualifiers: Hypertension type: essential hypertension Qualified Code(s): I10 - Essential (primary) hypertension (3) KASIA (obstructive sleep apnea) SNOMED Code(s): 08546982 Code(s): G47.33 - OBSTRUCTIVE SLEEP APNEA (ADULT) (PEDIATRIC) Current Visit : Yes (4) Hx of deep venous thrombosis SNOMED Code(s): 724918879 Code(s): Z86.718 - PERSONAL HISTORY OF OTHER VENOUS THROMBOSIS AND EMBOLISM Current Visit: Yes Problem List Initiated/Reviewed/Updated: Yes Plan: This 63 year old male admitted for L TKA today, hospitalist consult for medical management 1. S/P L TKA: Orders per Dr Spring. Modesta noted confusion this morning after giving Morphine. Josephine and Dr Spring aware. Currently Samm is alert and oriented. Likely secondary to narcotic use. 2. HTN: Stable, monitor post operatively continue Norvasc, HCTZ, and Losartan 3. KASIA: Stable continue CPAP use at night VTE prophylaxis: encourage adequate coverage due to VTE history. Eliquis 2.5 mg BID ordered
[2018-11-30 16:23] VITALS: BP 134/74
--- NOTE | 2018-12-01 08:36 | PCM.SURGPN ---
- General Info Date of Service: 11/30/18 Date of Surgery/Procedure: 11/28/18 POD#: 2 Functional Status: Reports: Pain Controlled, Tolerating Diet, Ambulating, Urinating - Review of Systems General: Reports: No Symptoms Cardiovascular: Reports: No Symptoms Gastrointestinal: Reports: No Symptoms Musculoskeletal: Reports: Leg Pain Systems Review Comment:: late entry date of exam and discharge was 11/30/18 pt up to chair for breakfast tolerating PO intake well pain controlled with PO pain medications would like to go home today after PT - Patient Data Vitals - Most Recent: Last Vital Signs Temp 97.9 F 11/30/18 12:00 Pulse 89 11/30/18 12:00 Resp 17 11/30/18 12:00 BP 134/74 11/30/18 12:00 Pulse Ox 96 11/30/18 12:00 Weight - Most Recent: 146.964 kg Med Orders - Current: Current Medications Discontinued Medications Al Hydroxide/Mg Hydroxide (Mag-Al Plus) 30 ml PO Q4H PRN PRN Reason: Indigestion Amlodipine Besylate (Norvasc) 5 mg PO DAILY [facility] Last Admin: 11/30/18 09:44 Dose: 5 mg Apixaban (Eliquis) 2.5 mg PO BID [facility] Last Admin: 11/30/18 09:47 Dose: 2.5 mg Aspirin (Aspirin) 325 mg PO BID [facility] Bisacodyl (Dulcolax) 10 mg RECTAL DAILY PRN PRN Reason: Constipation Celecoxib (Celebrex) 200 mg PO BID [facility] Last Admin: 11/30/18 09:47 Dose: 200 mg Citalopram Hydrobromide (Celexa) 40 mg PO DAILY [facility] Last Admin: 11/30/18 09:46 Dose: 40 mg Diphenhydramine HCl (Benadryl) 25 - 50 mg PO Q6H PRN PRN Reason: Itching Docusate Sodium (Colace) 100 mg PO BID [facility] Last Admin: 11/30/18 09:43 Dose: 100 mg Famotidine (Pepcid) 40 mg IVPUSH ONARR[facility] Last Admin: 11/28/18 08:04 Dose: 40 mg Famotidine (Pepcid) 40 mg PO DAILY [facility] Last Admin: 11/30/18 09:47 Dose: 40 mg Fentanyl (Sublimaze) Confirm Administered Dose 100 mcg .ROUTE .STK-MED ONE Stop: 11/28/18 08:23 Hydrochlorothiazide (Hydrochlorothiazide) 25 mg PO DAILY [facility] Last Admin: 11/30/18 09:47 Dose: 25 mg Acetaminophen 1,000 mg/ Premix 100 mls @ 400 mls/hr IV ONARRIVE [facility] Last Admin: 11/28/18 21:04 Dose: 400 mls/hr Ropivacaine 49.25 ml/Ketorolac Tromethamine 30 mg/Epinephrine HCl 0.5 mg/ Clonidine HCl 80 mcg/ Sodium Chloride 75 mls @ 50 mls/sec INJECT ASDIRECTED [facility] Lactated Ringer's (Ringers, Lactated) 1,000 mls @ 100 mls/hr IV ASDIRECTED [facility] Last Admin: 11/29/18 05:48 Dose: 100 mls/hr Tranexamic Acid 2,000 mg/ (Sodium Chloride) 120 mls @ 600 mls/hr IV ASDIRECTED ONE Stop: 11/28/18 06:11 Last Admin: 11/28/18 14:36 Dose: Not Given Vancomycin HCl 1 gm/ Sodium (Chloride) 250 mls @ 166.512 mls/hr IV ONCALL [facility] Last Admin: 11/28/18 09:04 Dose: 166.512 mls/hr Acetaminophen 1,000 mg/ Premix 100 mls @ 400 mls/hr IV Q6H [facility] Stop: 11/29/18 02:14 Last Admin: 11/29/18 01:55 Dose: 400 mls/hr Ketorolac Tromethamine (Toradol) 15 mg IVPUSH Q6H [facility] Stop: 11/29/18 05:00 Last Admin: 11/28/18 22:38 Dose: 15 mg Losartan Potassium (Cozaar) 50 mg PO DAILY [facility] Last Admin: 11/30/18 09:47 Dose: 50 mg Midazolam HCl (Versed 1 Mg/Ml) Confirm Administered Dose 4 mg .ROUTE .STK-MED ONE Stop: 11/28/18 08:24 Morphine Sulfate (Morphine Ste[employer]oat Inspector 30 Mg In 30 Ml) 30 mg IV ASDIRECTED PRN; Protocol PRN Reason: Pain Stop: 11/29/18 06:00 Morphine Sulfate (Morphine) 1 - 3 mg IVPUSH Q3H PRN PRN Reason: Pain Last Admin: 11/30/18 07:36 Dose: 2 mg Omeprazole (Omeprazole) 20 mg PO DAILY [facility] Last Admin: 11/30/18 09:44 Dose: 20 mg Ondansetron HCl (Zofran) 4 mg IVPUSH Q6H PRN PRN Reason: Nausea/Vomiting Last Admin: 11/28/18 22:38 Dose: 4 mg Oxycodone HCl (Oxycodone) 5 - 10 mg PO Q4H PRN PRN Reason: Pain Stop: 11/29/18 06:00 Last Admin: 11/28/18 21:11 Dose: 10 mg Oxycodone/Acetaminophen (Percocet 325-5 Mg) 1 - 2 tab PO Q4H PRN PRN Reason: Pain Last Admin: 11/30/18 14:35 Dose: 2 tab Polyethylene Glycol (Miralax) 17 gm PO DAILY [facility] Last Admin: 11/30/18 09:47 Dose: 17 gm Pramipexole Dihydrochloride (Mirapex) 1 mg PO BEDTIME [facility] Last Admin: 11/29/18 20:24 Dose: 1 mg Propofol (Diprivan 20 Ml) Confirm Administered Dose 400 mg .ROUTE .STK-MED ONE Stop: 11/28/18 08:23 Propofol (Diprivan 20 Ml) Confirm Administered Dose 200 mg .ROUTE .STK-MED ONE Stop: 11/28/18 10:48 Scopolamine (Transderm-Scop) 1.5 mg TRDERM ONARRIVE [facility] Last Admin: 11/28/18 08:03 Dose: 1.5 mg Sodium Chloride (Saline Flush) 10 ml FLUSH ASDIRECTED PRN PRN Reason: Keep Vein Open Sodium Chloride (Saline Flush) 2.5 ml FLUSH ASDIRECTED PRN PRN Reason: Keep Vein Open Sumatriptan Succinate (Imitrex) 100 mg PO ASDIRECTED PRN PRN Reason: Headache Tranexamic Acid (Cyklokapron) Confirm Administered Dose 2,000 mg .ROUTE .STK- MED ONE Stop: 11/28/18 08:20 - Exam Wound/Incisions: Healing Well General: Alert, Oriented Cardiovascular: Regular Rate, Regular Rhythm Extremities: Other (exam RLE - incision c/d/i, lucas intact, at/ehl/gastroc 5/ 5, dp 2+, sensation intact distally) Physical Findings Comment:: vss, afeb hgb 12.1 - Problem List Review Problem List Initiated/Reviewed/Updated: Yes - My Orders Last 24 Hours: Active Orders 24 hr Category Date Time Status Ready for Discharge [RC] PER UNIT ROUTINE Care 11/30/18 13:28 Active - Assessment Assessment (Free Text/Narrative):: POD#1 R TKA acute posthemorrhagic anemia - Plan Plan (Free Text/Narrative):: dressing changed d/ch to home today discharge instructions/medications reviewed contact clinic with any further questions/concerns d/ch summary #[id number]
--- NOTE | 2018-12-02 11:14 | DISCH ---
DATE OF DISCHARGE: 11/30/2018 PRIMARY CARE PHYSICIAN: Christian Lin M.D. ADMITTING DIAGNOSIS: Degenerative joint disease, left knee, tricompartmental. OTHER MEDICAL DIAGNOSES: 1. Hypertension. 2. Obstructive sleep apnea. 3. History of deep vein thrombosis. DISCHARGE DIAGNOSES: 1. Degenerative joint disease, left knee, tricompartmental. 2. Hypertension. 3. Obstructive sleep apnea. 4. History of deep vein thrombosis. 5. Acute post hemorrhagic anemia. BRIEF HISTORY: Jonny is a 63-year-old male who had progressive complaints of left knee pain. He has tried and failed conservative treatment. At that time, surgical treatment was recommended. On November 28, 2018, the patient underwent left total knee arthroplasty using patient-specific instrumentation done by Dr. Elzbieta Spring. This was done under spinal anesthesia with sedation. Estimated blood loss was 50 mL. Tourniquet time was 56 minutes. There were no known complications. Upon completion of the procedure, the patient was transferred to the PACU and subsequently to [facility] for postoperative care. HOSPITAL COURSE: Postoperatively, the patient did well. He received 2 doses of antibiotics postoperatively for a total of 24 hours of antibiotic coverage. Physical therapy and the hospitalist service followed him through his hospital stay for management of his medical comorbidities. His pain was controlled with a combination of oral and IV pain medications. He has been ambulating well with a wheeled walker. Eliquis 2.5 mg by mouth twice daily was started on postoperative day #1 as DVT prophylaxis, given his history of deep vein thrombosis. His vital signs have been stable. He has been afebrile. His hemoglobin on the morning of November 30 was 12.1. At this time, the patient is doing well. His pain is being controlled with oral pain medications only. He has been ambulating well with a wheeled walker. He is tolerating oral intake. He feels comfortable with discharge to home. DISCHARGE MEDICATIONS: 1. Percocet 5/325. 2. Celebrex 200 mg. 3. MiraLAX. 4. Colace 100 mg. 5. Eliquis 2.5 mg. DISCHARGE INSTRUCTIONS: For complete discharge instructions, please refer back to Dr. Spring's postoperative total knee arthroplasty patient instructions. For complete medication reconciliation, please refer back to the patient's EHR. Should he have questions or concerns prior to followup, he has been advised to contact the clinic. LORRIE MCPHERSON /[id number]
== END 2018-11-30 14:50 | disposition home or self-care (01) | DRG 302 ==
LOC: MW.MS 07:22 → EDSTATUS 12:00 → MW.MS 11-29 13:36
PROVIDERS: ADMIT Orthopaedic Surgery; ATTEND Orthopaedic Surgery
PROC: 0SRD0J9 Replacement of Left Knee Joint with Synthetic Substitute, Cemented, Open Approach (ICD-10-PCS; principal; 2018-11-28)
DX: M17.12 Unilateral primary osteoarthritis, left knee (principal); K21.9 Gastro-esophageal reflux disease without esophagitis; G43.909 Migraine, unspecified, not intractable, without status migrainosus; G25.81 Restless legs syndrome; D62 Acute posthemorrhagic anemia; F32.9 Major depressive disorder, single episode, unspecified; G47.33 Obstructive sleep apnea (adult) (pediatric); I10 Essential (primary) hypertension; F41.9 Anxiety disorder, unspecified; E66.9 Obesity, unspecified; Z98.49 Cataract extraction status, unspecified eye; Z86.718 Personal history of other venous thrombosis and embolism; Z88.5 Allergy status to narcotic agent; Z68.41 Body mass index [BMI] 40.0-44.9, adult; Z79.82 Long term (current) use of aspirin
CPT/HCPCS: 36415; 73560-26-LT; 73560-LT; 80048; 83735; 85014; 85018; 85025; 86850; 86900; 86901; 97110-GP; 97161-GP; 97530-GP; A4217; A9270-GY; C1713; C1776; J0131; J0171; J0735; J1885; J2250; J2270; J2405; J2704; J2795; J3010; J3370; J3490; J7050; J7120

== ENCOUNTER 2022-01-30 07:47 | Day surgery (SDC) | payer BC ==
[~2022-01-30 07:47] MED LIST changes: +Albuterol 0.083% 2.5 MG/3 ML Neb Soln NEB PRN; -Famotidine 20 MG/2 ML SDV IVPUSH SCH; +HYDROmorphone 1 MG/ML Syringe IVPUSH PRN; +Lactated Ringers 1,000 ML IV SCH; +Metoclopramide 10 MG/2 ML SDV IVPUSH PRN; +Morphine 4 MG/ML VIAL IVPUSH PRN; +Naloxone 0.4 MG/ML SDV IVPUSH PRN; +Ondansetron 4 MG/2 ML SDV IVPUSH PRN; -Ropivacaine 49.25 ML, Ketorolac 30 MG, EPINEPHrine 0.5 MG, cloNIDine 80 MCG in Sodium C... INJECT SCH; -Scopolamine 1.5 MG Transdermal Patch TRDERM SCH; -Tranexamic Acid 2,000 MG in Sodium Chloride 0.9% 100 ML IV ONE; +ceFAZolin 2 GM in Premix Bag 1 BAG IV ONE; +fentaNYL 50 MCG/ML SDV IVPUSH PRN
[2022-01-30] MEDS ORDERED: Bupivacaine 0.5% 10 ML SDV ONE (08:16)
[2022-01-30] MEDS ORDERED: Bupivacaine 0.5% 30 ML SDV ONE ×2 (08:17→09:24)
[2022-01-30] MEDS ORDERED: Bupivacaine 0.25%/EPINEPHrine 1:200,000 10 ML SDV ONE (08:17)
[2022-01-30] MEDS ORDERED: propofoL 100 ML ONE (09:22)
[2022-01-30] MEDS ORDERED: fentaNYL 100 MCG/2 ML SDV ONE (09:22)
[2022-01-30] MEDS ORDERED: ceFAZolin 1 GM Vial ONE ×2 (09:24→10:05)
[2022-01-30] MEDS ORDERED: Rocuronium Bromide 50 MG/5 ML Syringe ONE (09:25)
[2022-01-30] MEDS ORDERED: Phenylephrine HCl In 0.9% NaCl 1 MG/10 ML Vial ONE ×2 (09:35→11:53)
[2022-01-30] MEDS ORDERED: Ondansetron 4 MG/2 ML SDV ONE ×2 (09:35→11:26)
[2022-01-30] MEDS ORDERED: Dexmedetomidine 200 MCG/2 ML SDV ONE (09:35)
[2022-01-30] MEDS ORDERED: Metoclopramide 10 MG/2 ML SDV ONE (09:35)
[2022-01-30] MEDS ORDERED: Water For Injection, Sterile 20 ML ONE (10:06)
[2022-01-30] MEDS ORDERED: Dexamethasone 4 MG/ML 5 ML MDV ONE (11:05)
[2022-01-30] MEDS ORDERED: Ketorolac 30 MG/ML SDV ONE (11:26)
[2022-01-30] MEDS ORDERED: Sugammadex Sodium 200 MG/2 ML VIAL ONE (11:26)
[2022-01-30] MEDS ORDERED: Propofol 200 MG/20 ML SDV ONE (12:33)
[2022-01-30] MEDS ORDERED: Morphine 4 MG/ML VIAL IVPUSH PRN (12:54)
[2022-01-30] MEDS ORDERED: Ondansetron 4 MG/2 ML SDV IVPUSH PRN (12:54)
[2022-01-30] MEDS ORDERED: Acetaminophen/HYDROcodone 325-5 MG Tab PO PRN ×3 (12:54→13:14)
[2022-01-30] MEDS ORDERED: Lactated Ringers 1,000 ML IV SCH (13:00)
[2022-01-30 14:45] VITALS: BP 113/65; PULSE 79
== END 2022-01-30 15:31 | disposition home or self-care (01) ==
LOC: MW.SDS 07:47
PROVIDERS: ATTEND Surgery
DX: K40.90 Unilateral inguinal hernia, without obstruction or gangrene, not specified as recurrent (principal); K42.0 Umbilical hernia with obstruction, without gangrene; I10 Essential (primary) hypertension; F41.9 Anxiety disorder, unspecified; F32.A Depression, unspecified; K21.9 Gastro-esophageal reflux disease without esophagitis; I48.91 Unspecified atrial fibrillation; G47.30 Sleep apnea, unspecified; E66.9 Obesity, unspecified; I76 Septic arterial embolism; Z98.890 Other specified postprocedural states; Z87.81 Personal history of (healed) traumatic fracture; Z88.5 Allergy status to narcotic agent; Z79.899 Other long term (current) drug therapy; Z79.01 Long term (current) use of anticoagulants; Z96.659 Presence of unspecified artificial knee joint; Z68.41 Body mass index [BMI] 40.0-44.9, adult
CPT/HCPCS: 49505; 49587; C1781; J0690; J1100; J1885; J2704; J2765; J3010; J3490; J7120; 00750; J2405